=== PATIENT | male | born 1975 | race Caucasian/White ===

== ENCOUNTER 2021-12-15 09:24 | Day surgery (SDC) | payer MEDICAID ==
[~2021-12-15] VITALS: Ht 177.8 cm; Wt 129.6 kg
[2021-12-15] MEDS ORDERED: fentaNYL/PF 50MCG/1 ML 2ML syringe ONE (09:35)
[2021-12-15] MEDS ORDERED: LIDOcaine Viscous 15ml cup ONE (09:36)
[2021-12-15] MEDS ORDERED: MIDAZolam 1 MG/ML 5ML VIAL ONE (09:36)
[2021-12-15 09:40] VITALS: BP 138/79
[2021-12-15] MEDS ORDERED: ALBU8HFA PO (09:41)
[2021-12-15] MEDS ORDERED: FLUT1BLS10 PO (09:41)
[2021-12-15] MEDS ORDERED: PANT20TA18 PO (09:41)
[2021-12-15 11:45] VITALS: BP 125/83
[2021-12-15 11:55] VITALS: BP 135/72
[2021-12-15 12:05] VITALS: BP 127/75
[2021-12-15 12:15] VITALS: BP 123/75
== END 2021-12-15 12:30 | disposition home or self-care (01) ==
LOC: GI LAB 09:24
PROVIDERS: ATTEND Internal Medicine Gastroenterology
DX: K20.90 Esophagitis, unspecified without bleeding (principal); K44.9 Diaphragmatic hernia without obstruction or gangrene; K29.70 Gastritis, unspecified, without bleeding; K21.9 Gastro-esophageal reflux disease without esophagitis; J45.909 Unspecified asthma, uncomplicated; Z79.899 Other long term (current) drug therapy; Z98.890 Other specified postprocedural states
CPT/HCPCS: 43239; 43251; 99152; C1773; J2250; J3010; J7030; Z7512; A4620

== ENCOUNTER 2022-01-05 12:48 | Emergency (ER) | payer MEDICAID ==
[~2022-01-05] VITALS: Ht 177.8 cm; Wt 125.0 kg
[~2022-01-05 12:48] MED LIST: ALBU8HFA PO; FLUT1BLS10 PO; PANT20TA18 PO
[2022-01-05] MEDS ORDERED: acetaminophen 325mg tablet PO ONE ×2 (13:15→15:10)
[2022-01-05 13:56] LABS: BASOPHILS % (AUTO) 0.2 % (0-1); EOSINOPHILS % (AUTO) 0.2 % (0-6); HEMATOCRIT 42.2 % (42.0-52.0); HEMOGLOBIN 14.3 g/dl (14.0-17.9); LYMPHOCYTES # (AUTO) 0.7 X10'3 (1.1-4.8); LYMPHOCYTES % (AUTO) 4.5 % (21-51); MEAN CORPUSCULAR HEMOGLOBIN 30.4 PG (27.0-31.0); MEAN CORPUSCULAR HGB CONC 33.9 g/dL (33.0-36.5); MEAN CORPUSCULAR VOLUME 89.7 FL (78-98); MEAN PLATELET VOLUME 8.4 FL (7.4-10.4); MONOCYTES # (AUTO) 0.5 X10'3 (0-0.9); NEUTROPHILS # (AUTO) 14.6 X10'3 (1.8-7.7); NEUTROPHILS % (AUTO) 92.1 % (42-75); PLATELET COUNT 236 X10'3 (140-440); RED CELL DISTRIBUTION WIDTH 13.3 % (11.5-14.5); WHITE BLOOD COUNT 15.8 X10'3 (4.5-11.0)
[2022-01-05 14:08] LABS: ALANINE AMINOTRANSFERASE 39 U/L (12-78); ALBUMIN 4.2 G/DL (3.4-5.0); ALBUMIN/GLOBULIN RATIO 1.1 (1.1-1.5); ALKALINE PHOSPHATASE 104 IU/L (46-116); ANION GAP 9 (8-16); ASPARTATE AMINO TRANSFERASE 22 U/L (10-37); BILIRUBIN,TOTAL 0.9 MG/DL (0.1-1.0); BLOOD UREA NITROGEN 14 MG/DL (7-18); BUN/CREATININE RATIO 11.9 (5.4-32.0); CALCIUM 9.1 MG/DL (8.5-10.1); CHLORIDE 100 MMOL/L (99-107); CREATININE 1.18 MG/DL (0.60-1.10); GLUCOSE 100 MG/DL (70-104); POTASSIUM 3.4 MMOL/L (3.5-5.1); SODIUM 137 MMOL/L (135-145); TOTAL CARBON DIOXIDE 27.8 MMOL/L (24-32); TOTAL PROTEIN 7.9 G/DL (6.4-8.2); eGFR 67 ML/MIN
--- NOTE | 2022-01-05 14:11 | NUR ---
pt c/o right lower leg pain, right jones and right groin area
[2022-01-05] MEDS ORDERED: CEPH250T PO (14:36)
[2022-01-05] MEDS ORDERED: ibuprofen tablet 400 MG TABLET PO ONE (15:10)
[2022-01-05 15:17] VITALS: BP 142/82
== END 2022-01-05 15:37 | disposition home or self-care (01) ==
LOC: ER 12:48
DX: L03.115 Cellulitis of right lower limb (principal); F15.20 Other stimulant dependence, uncomplicated; Z59.00 Homelessness unspecified
CPT/HCPCS: 36415; 71045; 80053; 83605; 84145; 85025; 87040; 93005; 99285

== ENCOUNTER 2023-10-17 15:27 | Outpatient (CLI) | payer MEDICAID | END 2023-10-17 23:59 | disposition home or self-care (01) | LOC: RAD 15:27 | PROVIDERS: ATTEND General Practice | DX: M19.071 Primary osteoarthritis, right ankle and foot (principal); M19.072 Primary osteoarthritis, left ankle and foot; M25.774 Osteophyte, right foot; M77.32 Calcaneal spur, left foot; M77.31 Calcaneal spur, right foot; M25.475 Effusion, left foot; M25.474 Effusion, right foot; R60.9 Edema, unspecified; M79.671 Pain in right foot | CPT/HCPCS: 73610; 73630 ==

== ENCOUNTER 2024-11-01 14:26 | Outpatient (CLI) | payer MEDICAID ==
--- NOTE | 2024-11-01 15:52 | RADIOLOGY REPORT ---
MR MRI HEAD INDICATION: ANXIETY DISORDER, UNSPECIFIED EXAM DATE: 11/01/2024 02:45 PM COMPARISON: None PROCEDURE: Using a 1.5 Vanessa scanner, multisequence multiplanar imaging of the brain was obtained. FINDINGS: The brainshows normal morphology and signal characteristics. No abnormal T2 hyperintensity, diffusion restriction, or susceptibility hypointensity is present. The ventricles are normal in size . The midline structures are intact. The major intracranial flow voids are present. The aerated space s are normal. The orbital contents and extracranial soft tissues appear normal. IMPRESSION: Unremarkable MRI findings of the brain.
== END 2024-11-01 23:59 | disposition home or self-care (01) ==
LOC: MRI02 14:26
PROVIDERS: ATTEND Student in an Organized Health Care Education/Training Program
DX: F41.9 Anxiety disorder, unspecified (principal); R42 Dizziness and giddiness
CPT/HCPCS: 70551

== ENCOUNTER 2024-12-27 13:10 | Outpatient (CLI) | payer MEDICAID ==
--- NOTE | 2024-12-27 18:55 | RADIOLOGY REPORT ---
EXAM: MR MRI LOWER EXTREMITY LEFT HISTORY: PAIN IN L KNEE COMPARISON: DI ANKLE, COMPLETE(3VW MIN) on DOS: 10/17/23 TECHNIQUE: Multiplanar, multisequence imaging of the left knee was performed without contrast FINDINGS: MEDIAL COMPARTMENT: Intrasubstance signal along the inner 2/3 of the central body of the medial menis cus. No focal chondrosis or subchondral edema. LATERAL COMPARTMENT: Intact lateral meniscus. No focal chondrosis or subchondral edema. PATELLOFEMORAL COMPARTMENT: No focal chondrosis or subchondral edema. CRUCIATE LIGAMENTS: Intact anterior and posterior cruciate ligaments. MEDIAL SUPPORTING STRUCTURES: Intact medial collateral ligament. LATERAL SUPPORTING STRUCTURES: Intact iliotibial band, lateral capsular ligament, fibular collateral ligament, popliteus, and biceps femoris tendons EXTENSOR MECHANISM: Intact JOINT SPACE/FLUID: Trace knee joint fluid. Ross's cyst. BONES: No acute fracture, osseous contusion, or aggressive focal osseous lesion MUSCLES: Normal in signal intensity and morphology NEUROVASCULAR: Superficial varicosities. OTHER: None IMPRESSION: 1. Intrasubstance signal along the inner 2/3 of the central body of the medial meniscus. Correlate fo r incompletely characterized tear
== END 2024-12-27 23:59 | disposition home or self-care (01) ==
LOC: MRI02 13:10
PROVIDERS: ATTEND Family Medicine Sports Medicine
DX: M71.22 Synovial cyst of popliteal space [Baker], left knee (principal); I83.92 Asymptomatic varicose veins of left lower extremity; M54.50 Low back pain, unspecified; M47.816 Spondylosis without myelopathy or radiculopathy, lumbar region; M25.562 Pain in left knee
CPT/HCPCS: 73721

== ENCOUNTER 2025-01-02 11:08 | Outpatient (CLI) | payer MEDICAID ==
--- NOTE | 2025-01-02 13:56 | RADIOLOGY REPORT ---
[facility] EXAMINATION: MR MRI HEAD INDICATION: HEADACHE, UNSPECIFIED COMPARISON: MR MRI HEAD on DOS: 11/01/24 TECHNIQUE: Multiplanar, multisequence magnetic resonance imaging of the brain was performed without the use of i ntravenous contrast. FINDINGS: No evidence of acute or remote infarct. No intracranial hemorrhage. No mass effect. There is periventricular/deep white matter T2/FLAIR hyperintensity is nonspecific, but most commonly associated with chronic microvascular disease. The ventricles and sulci are normal in size for age. Clear basal cisterns. Flow voids in the major intracranial vessels are maintained. No abnormality of the orbits. Paranasal sinuses and mastoid air cells are clear. No abnormality of the visualized osseous structures and extracranial soft tissues. IMPRESSION: No acute infarct, intracranial hemorrhage, mass effect, or hydrocephalus.
== END 2025-01-02 23:59 | disposition home or self-care (01) ==
LOC: MRI02 11:08
PROVIDERS: ATTEND Neuromusculoskeletal Medicine & OMM
DX: R51.9 Headache, unspecified (principal)
CPT/HCPCS: 70551